=== PATIENT | female | born 1935 | race Caucasian/White ===

== ENCOUNTER 2016-05-14 07:26 | Day surgery (SDCO) | payer MEDICARE, OTHER ==
[2016-05-14 07:39] LABS: BASOPHIL 0.3 % (0-2); EOSINOPHIL 2.4 % (0-7); HCT 35.3 % (37.0-47.0); HGB 11.4 g/dl (12.5-16.0); LYMPHOCYTE 13.2 % (15-48); MCH 27.2 pg (25.0-31.0); MCHC 32.3 g/dL (32.0-36.0); MCV 84.2 fL (78.0-100.0); MONOCYTE 10.9 % (0-12); MPV 9.8 fL (6.0-9.5); NEUTROPHIL 73.2 % (41-80); PLT 185 K/uL (150-400); RBC 4.19 M/uL (4.20-5.40); WBC 5.8 K/uL (4.0-10.5)
[2016-05-14 07:45] LABS: INR 2.76 (0.9-1.2); PROTHROMBIN TIME 28.5 SECONDS (11.7-14.0); PTT 48.5 SECONDS (23.2-31.4)
[2016-05-14 07:53] LABS: ALBUMIN 4.4 g/dL (3.4-4.8); BILIRUBIN - TOTAL 0.5 mg/dL (0.1-1.0); CREATININE 0.9 mg/dL (0.5-1.0); GLOBULIN (CALCULATION) 2.3 g/dL (2.2-4.2); MAGNESIUM 1.84 mg/dL (1.40-2.10); POTASSIUM 3.9 mmol/L (3.5-5.1); TOTAL PROTEIN 6.7 g/dL (6.4-8.3)
[2016-05-14 07:56] LABS: CKMB 1.88 ng/mL (0.97-4.94); MYOGLOBIN 40 ng/mL (26-65); TROPONIN T < 0.010 ng/mL
[2016-05-14 07:58] LABS: PRO-BNP 1188 pg/mL (0-450)
[2016-05-15 04:22] LABS: BASOPHIL 0.4 % (0-2); EOSINOPHIL 2.1 % (0-7); HCT 34.3 % (37.0-47.0); HGB 11.1 g/dl (12.5-16.0); LYMPHOCYTE 13.7 % (15-48); MCH 27.1 pg (25.0-31.0); MCHC 32.4 g/dL (32.0-36.0); MCV 83.9 fL (78.0-100.0); MPV 9.7 fL (6.0-9.5); NEUTROPHIL 72.8 % (41-80); PLT 183 K/uL (150-400); RBC 4.09 M/uL (4.20-5.40); RDW 14.9 % (11.5-14.0); WBC 5.3 K/uL (4.0-10.5)
[2016-05-15 04:29] LABS: INR 2.57 (0.9-1.2); PROTHROMBIN TIME 26.9 SECONDS (11.7-14.0)
[2016-05-15 04:39] LABS: TROPONIN T < 0.010 ng/mL
[2016-05-15 04:41] LABS: PRO-BNP 1110 pg/mL (0-450)
[2016-05-15 04:42] LABS: POTASSIUM 3.9 mmol/L (3.5-5.1)
[2016-05-16 04:14] LABS: HCT 33.5 % (37.0-47.0); HGB 10.7 g/dl (12.5-16.0); MCH 26.7 pg (25.0-31.0); MCHC 31.9 g/dL (32.0-36.0); MCV 83.5 fL (78.0-100.0); MPV 9.5 fL (6.0-9.5); RBC 4.01 M/uL (4.20-5.40); WBC 5.1 K/uL (4.0-10.5)
[2016-05-16 04:22] LABS: INR 2.85 (0.9-1.2); PROTHROMBIN TIME 29.2 SECONDS (11.7-14.0)
[2016-05-16 04:42] LABS: MAGNESIUM 1.81 mg/dL (1.40-2.10); POTASSIUM 3.5 mmol/L (3.5-5.1)
[2016-05-17 04:15] LABS: HCT 34.6 % (37.0-47.0); MCH 26.8 pg (25.0-31.0); MCHC 31.8 g/dL (32.0-36.0); MCV 84.2 fL (78.0-100.0); RBC 4.11 M/uL (4.20-5.40); RETICULOCYTE COUNT 1.5 % (1.0-2.0); WBC 4.6 K/uL (4.0-10.5)
[2016-05-17 04:20] LABS: INR 1.94 (0.9-1.2); PROTHROMBIN TIME 21.6 SECONDS (11.7-14.0)
[2016-05-17 04:37] LABS: CREATININE 1.3 mg/dL (0.5-1.0); POTASSIUM 4.2 mmol/L (3.5-5.1)
[2016-05-17 04:38] LABS: IRON 40 ug/dL (44-196); IRON % SATURATION 13 %SAT (20-50); TIBC (TOTAL IRON + UIBC) 309 U/L (228-428); UIBC 269 ug/dL (112-346)
[2016-05-17 04:51] LABS: FOLIC ACID (SERUM) 7.2 ng/mL (5.6-45.8)
[2016-05-18 05:02] LABS: INR 1.52 (0.9-1.2); PROTHROMBIN TIME 17.8 SECONDS (11.7-14.0)
[2016-05-18 05:09] LABS: CREATININE 0.9 mg/dL (0.5-1.0); POTASSIUM 4.3 mmol/L (3.5-5.1)
[2016-05-19 04:11] LABS: HCT 33.1 % (37.0-47.0); HGB 10.5 g/dl (12.5-16.0); MCH 26.6 pg (25.0-31.0); MCHC 31.7 g/dL (32.0-36.0); MPV 9.9 fL (6.0-9.5); RBC 3.94 M/uL (4.20-5.40); WBC 4.1 K/uL (4.0-10.5)
[2016-05-19 04:19] LABS: INR 1.23 (0.9-1.2); PROTHROMBIN TIME 15.1 SECONDS (11.7-14.0)
[2016-05-19 04:26] LABS: CREATININE 0.9 mg/dL (0.5-1.0); POTASSIUM 3.8 mmol/L (3.5-5.1)
--- NOTE | 2016-06-03 09:04 | NUR ---
Pt was transferred to [facility] prior to social work assessment
== END 2016-05-19 09:15 | disposition other institution (70) ==
LOC: FER 07:26 → FTCU 11:50
PROVIDERS: Emergency Medicine; Internal Medicine Cardiovascular Disease; ADMIT Internal Medicine
DX: I24.9 Acute ischemic heart disease, unspecified (principal); I25.10 Atherosclerotic heart disease of native coronary artery without angina pectoris; I48.2 Chronic atrial fibrillation; I25.2 Old myocardial infarction; I10 Essential (primary) hypertension; E03.9 Hypothyroidism, unspecified; E78.5 Hyperlipidemia, unspecified; J44.9 Chronic obstructive pulmonary disease, unspecified; K21.9 Gastro-esophageal reflux disease without esophagitis; M19.90 Unspecified osteoarthritis, unspecified site; G57.91 Unspecified mononeuropathy of right lower limb; G47.33 Obstructive sleep apnea (adult) (pediatric); Z90.49 Acquired absence of other specified parts of digestive tract; Z90.11 Acquired absence of right breast and nipple; Z95.1 Presence of aortocoronary bypass graft; Z95.2 Presence of prosthetic heart valve; Z87.891 Personal history of nicotine dependence; Z86.73 Personal history of transient ischemic attack (TIA), and cerebral infarction without residual deficits; Z85.3 Personal history of malignant neoplasm of breast; Z82.49 Family history of ischemic heart disease and other diseases of the circulatory system; Z82.3 Family history of stroke; Z83.3 Family history of diabetes mellitus; Z79.02 Long term (current) use of antithrombotics/antiplatelets; Z79.01 Long term (current) use of anticoagulants; Z79.899 Other long term (current) drug therapy; Z98.890 Other specified postprocedural states
CPT/HCPCS: 36415; 71010; 80048; 80053; 80061; 82550; 82553; 82607; 82746; 83540; 83550; 83735; 83874; 83880; 84484; 85025; 85044; 85610; 85730; 93005; 94010; G0378; J2916; J3420

== ENCOUNTER 2016-07-12 09:29 | Emergency (ER) | payer MEDICARE, OTHER ==
[2016-07-12 09:50] LABS: BILIRUBIN NEGATIVE (NEGATIVE); BLOOD TRACE-INTACT Ery/uL (NEGATIVE); CLARITY CLEAR (CLEAR); COLOR YELLOW (YELLOW); GLUCOSE (U) NORMAL (NORMAL); KETONE (U) NEGATIVE (NEGATIVE); LEUKOCYTES NEGATIVE Leu/uL (NEGATIVE); NITRITE NEGATIVE (NEGATIVE); PROTEIN NEGATIVE (NEGATIVE); SPECIFIC GRAVITY <=1.005 (1.001-1.030); UROBILINOGEN 0.2 mg/dL (0.2-1.0)
[2016-07-12 10:09] LABS: BACTERIA TRACE; URINARY WBC RARE
== END 2016-07-12 10:35 | disposition home or self-care (01) ==
LOC: FER 09:29
PROVIDERS: Emergency Medicine
DX: R30.0 Dysuria (principal); I10 Essential (primary) hypertension; Z79.01 Long term (current) use of anticoagulants; Z79.02 Long term (current) use of antithrombotics/antiplatelets; Z90.49 Acquired absence of other specified parts of digestive tract; Z90.89 Acquired absence of other organs; Z98.890 Other specified postprocedural states
CPT/HCPCS: 81001; 99283

== ENCOUNTER 2020-02-16 09:08 | Inpatient (IN) | payer MEDICARE, OTHER ==
[~2020-02-16 09:08] MED LIST: AMITRIPTYLINE 550 MG PO; BACLOFEN 10MG T10 MG PO; BREO ELLIPTA 11 EACH INH; CARDIZEM30 MG PO; CELEXA10 MG PO; COUMADIN4 MG PO; COZAAR50 MG PO; DIOVAN80 MG PO; ELAVIL50 MG PO; K-DUR20 MEQ PO; KEFLEX250 MG PO; KLOR-CON M20 T20 MEQ PO; KLOR-CON20 MEQ PO; LASIX40 MG PO; LASIX80 MG PO; LEVO-T88 MCG PO; LOPRESSOR50 MG PO; LOVAZA1 GM PO; MAG-OXIDE 400M400 MG PO; METOCLOPRAMIDE H5 MG PO; NITROQUIK SL0.4 MG SL; NORVASC2.5 MG PO; OS-CAL500 MG PO; PLAVIX75 MG PO; PRAVACHOL20 MG PO; PRILOSEC20 MG PO; REGLAN5 M1 PO; REQUIP1 MG PO; SYNTHROID88 MCG PO; TOPROL XL 50 MG50 MG PO; VENTOLIN (2.5 MG/3 M INH; XANAX0.5 MG PO
[2020-02-16 10:00] LABS: BILIRUBIN NEGATIVE (NEGATIVE); BLOOD TRACE-LYSED Ery/uL (NEGATIVE); CLARITY CLEAR (CLEAR); COLOR YELLOW (YELLOW); GLUCOSE (U) NORMAL (NORMAL); LEUKOCYTES NEGATIVE Leu/uL (NEGATIVE); NITRITE NEGATIVE (NEGATIVE); PROTEIN NEGATIVE (NEGATIVE); SPECIFIC GRAVITY <=1.005 (1.001-1.030); UROBILINOGEN 0.2 mg/dL (0.2-1.0); pH 5.5 (5.0-9.0)
[2020-02-16 10:06] LABS: URINARY RBC RARE
[2020-02-16 10:07] LABS: SQUAMOUS EPITHELIAL CELLS RARE
[2020-02-16 10:36] LABS: BASOPHIL 0.4 % (0-2); EOSINOPHIL 0.6 % (0-7); HCT 33.5 % (37.0-47.0); HGB 10.9 g/dl (12.5-16.0); LYMPHOCYTE 7.2 % (15-48); MCH 29.6 pg (25.0-31.0); MCHC 32.5 g/dL (32.0-36.0); MONOCYTE 1.1 % (0-12); NEUTROPHIL 90.1 % (41-80); NRBC 0; PLT 203 K/uL (150-400); RBC 3.68 M/uL (4.20-5.40)
[2020-02-16 10:45] LABS: WBC 5.4 K/uL (4.0-10.5)
[2020-02-16 10:53] LABS: LACTIC ACID 1.3 mmol/L (0.4-1.9)
[2020-02-16 10:56] LABS: ALBUMIN 3.1 g/dL (3.4-5.0); ALKALINE PHOSHATASE 230 U/L (46-116); ALT 77 U/L (14-59); AST 78 U/L (15-37); BILIRUBIN - TOTAL 0.9 mg/dL (0.2-1.0); BUN 18 mg/dL (7-18); BUN/CREAT RATIO (CALC) 18.2 RATIO; C-REACTIVE PROTEIN >18.00 mg/dL (<=0.90); CHLORIDE 102 mmol/L (98-107); CO2 (BICARBONATE) 28 mmol/L (21-32); CREATININE 0.99 mg/dL (0.51-0.95); GLOBULIN (CALCULATION) 3.6 g/dL; GLUCOSE 108 mg/dL (74-106); LIPASE 131 U/L (73-393); POTASSIUM 2.7 mmol/L (3.5-5.1); TOTAL PROTEIN 6.7 g/dL (6.4-8.2)
[2020-02-16 11:15] LABS: CORONAVIRUS 2019 SARS-COV-2 NEGATIVE (NEGATIVE); INFLUENZA A NAA NEGATIVE (NEGATIVE)
[2020-02-16 11:20] LABS: INR 4.44 (0.9-1.2); PROTHROMBIN TIME 40.4 SECONDS (11.4-13.6)
[2020-02-16] MEDS ORDERED: KEFLEX500 MG PO (15:35)
[2020-02-16] MEDS ORDERED: ATARAX25 MG PO (15:56)
[2020-02-16] MEDS ORDERED: FOLIC ACID1 MG PO (15:57)
[2020-02-16] MEDS ORDERED: RHEUMATREX2.5 MG PO (16:04)
[2020-02-17 05:51] LABS: BASOPHIL 0.9 % (0-2); EOSINOPHIL 3.6 % (0-7); HCT 34.1 % (37.0-47.0); HGB 10.8 g/dl (12.5-16.0); LYMPHOCYTE 13.4 % (15-48); MCH 29.3 pg (25.0-31.0); MCHC 31.7 g/dL (32.0-36.0); MCV 92.4 fL (78.0-100.0); MONOCYTE 2.1 % (0-12); NEUTROPHIL 79.1 % (41-80); NRBC 0; PLT 207 K/uL (150-400); RBC 3.69 M/uL (4.20-5.40); RDW 17.1 % (11.5-14.0); WBC 3.3 K/uL (4.0-10.5)
[2020-02-17 06:16] LABS: ALBUMIN 2.7 g/dL (3.4-5.0); BILIRUBIN - TOTAL 0.9 mg/dL (0.2-1.0); BUN/CREAT RATIO (CALC) 15.6 RATIO; CREATININE 0.9 mg/dL (0.51-0.95); GLOBULIN (CALCULATION) 3.4 g/dL; POTASSIUM 3.5 mmol/L (3.5-5.1); TOTAL PROTEIN 6.1 g/dL (6.4-8.2)
[2020-02-17 06:19] LABS: INR 4.05 (0.9-1.2); PROTHROMBIN TIME 37.6 SECONDS (11.4-13.6)
[2020-02-18 04:54] LABS: BASOPHIL 1.6 % (0-2); EOSINOPHIL 3.2 % (0-7); HCT 31.6 % (37.0-47.0); HGB 9.8 g/dl (12.5-16.0); LYMPHOCYTE 30.6 % (15-48); MCH 29.3 pg (25.0-31.0); MCV 94.6 fL (78.0-100.0); MONOCYTE 6.5 % (0-12); MPV 10.1 fL (6.0-9.5); NRBC 0; PLT 180 K/uL (150-400); RBC 3.34 M/uL (4.20-5.40); RDW 17.1 % (11.5-14.0)
[2020-02-18 04:57] LABS: INR 2.36 (0.9-1.2); PROTHROMBIN TIME 24.6 SECONDS (11.4-13.6)
[2020-02-18 05:03] LABS: WBC 1.9 K/uL (4.0-10.5)
[2020-02-18 05:31] LABS: ALBUMIN 2.5 g/dL (3.4-5.0); BILIRUBIN - TOTAL 0.6 mg/dL (0.2-1.0); BUN/CREAT RATIO (CALC) 13.4 RATIO; CREATININE 1.12 mg/dL (0.51-0.95); GLOBULIN (CALCULATION) 3.3 g/dL; POTASSIUM 3.9 mmol/L (3.5-5.1); TOTAL PROTEIN 5.8 g/dL (6.4-8.2)
[2020-02-19 05:00] LABS: BASOPHIL 0.4 % (0-2); EOSINOPHIL 3.5 % (0-7); HCT 32.6 % (37.0-47.0); LYMPHOCYTE 26.5 % (15-48); MCH 29.2 pg (25.0-31.0); MCHC 30.7 g/dL (32.0-36.0); MONOCYTE 9.7 % (0-12); MPV 9.5 fL (6.0-9.5); NEUTROPHIL 59.5 % (41-80); NRBC 0; PLT 154 K/uL (150-400); RBC 3.43 M/uL (4.20-5.40); RDW 17.1 % (11.5-14.0); WBC 2.3 K/uL (4.0-10.5)
[2020-02-19 05:06] LABS: INR 1.41 (0.9-1.2); PROTHROMBIN TIME 16.4 SECONDS (11.4-13.6)
[2020-02-19 05:27] LABS: CREATININE 0.88 mg/dL (0.51-0.95); POTASSIUM 4.1 mmol/L (3.5-5.1)
[2020-02-20 04:46] LABS: BASOPHIL 0.6 % (0-2); EOSINOPHIL 3.8 % (0-7); HCT 30.8 % (37.0-47.0); HGB 9.6 g/dl (12.5-16.0); LYMPHOCYTE 24.5 % (15-48); MCH 29.4 pg (25.0-31.0); MCHC 31.2 g/dL (32.0-36.0); MCV 94.2 fL (78.0-100.0); MONOCYTE 7.3 % (0-12); MPV 9.1 fL (6.0-9.5); NEUTROPHIL 63.2 % (41-80); NRBC 0; PLT 129 K/uL (150-400); RBC 3.27 M/uL (4.20-5.40); RDW 16.8 % (11.5-14.0); WBC 3.1 K/uL (4.0-10.5)
[2020-02-20 04:54] LABS: INR 1.42 (0.9-1.2); PROTHROMBIN TIME 16.5 SECONDS (11.4-13.6)
[2020-02-20 05:04] LABS: ALBUMIN 2.5 g/dL (3.4-5.0); BILIRUBIN - TOTAL 0.5 mg/dL (0.2-1.0); CREATININE 0.88 mg/dL (0.51-0.95); GLOBULIN (CALCULATION) 3.2 g/dL; POTASSIUM 4.1 mmol/L (3.5-5.1); TOTAL PROTEIN 5.7 g/dL (6.4-8.2)
[2020-02-20 08:07] LABS: HBSAG SCREEN Negative (Negative); HEP B CORE AB, TOT Negative (Negative); HEP C VIRUS AB 0.1 (0.0-0.9)
[2020-02-20] MEDS ORDERED: AMOX TR-K CLV1 EAC4 PO (13:52)
[2020-02-20] MEDS ORDERED: LOVENOX60 MG/0.6 SC (13:53)
--- NOTE | 2020-02-20 14:37 | NUR ---
02/20/20 Ms. Mccormick is and lives alone. She has 02 for night use, rw, rollator, 3in1, and s. chair. Ms. Mccormick reports to have been modified independent with ADLS and IADLS prior to admission; she drives. - Ms. Mccormick requested [facility]; affliations have been explained. A referral was made to [facility] via [facility] for nursing ([facility]) and PT. [facility] verified cost of Lovenox injections to be $5.26. - Report given to MS Renetta RN.
--- NOTE | 2020-02-20 15:14 | NUR ---
DISCHARGE INSTRUCTIONS GIVEN. VERBALIZED UNDERSTANDING. IV DCD. FAMILY TO OBSTETRICS SPECIALIST AT [facility].
== END 2020-02-20 15:00 | disposition home health service (06) | DRG 871 ==
LOC: FER 09:08 → FMS 12:57
PROVIDERS: Allergy & Immunology Allergy; Internal Medicine; Nurse Practitioner; ADMIT Internal Medicine
DX: A41.9 Sepsis, unspecified organism (principal); J18.9 Pneumonia, unspecified organism; I48.20 Chronic atrial fibrillation, unspecified; J44.0 Chronic obstructive pulmonary disease with (acute) lower respiratory infection; I50.22 Chronic systolic (congestive) heart failure; E78.5 Hyperlipidemia, unspecified; Z20.822 Contact with and (suspected) exposure to COVID-19; F41.9 Anxiety disorder, unspecified; I25.10 Atherosclerotic heart disease of native coronary artery without angina pectoris; I11.0 Hypertensive heart disease with heart failure; K21.9 Gastro-esophageal reflux disease without esophagitis; E03.9 Hypothyroidism, unspecified; G47.33 Obstructive sleep apnea (adult) (pediatric); G89.29 Other chronic pain; M81.0 Age-related osteoporosis without current pathological fracture; M54.5 Low back pain; F17.210 Nicotine dependence, cigarettes, uncomplicated; R79.89 Other specified abnormal findings of blood chemistry; E87.6 Hypokalemia; Z79.01 Long term (current) use of anticoagulants; Z79.899 Other long term (current) drug therapy; Z95.2 Presence of prosthetic heart valve; Z95.0 Presence of cardiac pacemaker; Z90.49 Acquired absence of other specified parts of digestive tract; Z98.890 Other specified postprocedural states; Z88.2 Allergy status to sulfonamides; Z95.1 Presence of aortocoronary bypass graft; Z95.5 Presence of coronary angioplasty implant and graft; Z85.3 Personal history of malignant neoplasm of breast; Z86.73 Personal history of transient ischemic attack (TIA), and cerebral infarction without residual deficits
CPT/HCPCS: 36415; 71045; 71046; 80048; 80053; 81001; 83605; 83690; 83735; 84145; 85025; 85379; 85610; 85730; 86140; 86704; 86706; 86708; 86803; 87040; 87340; 93005; J0696; J1650; J2405; J2543; U0002

== ENCOUNTER 2020-03-13 09:12 | Inpatient (IN) | payer MEDICARE, OTHER ==
[~2020-03-13 09:12] MED LIST changes: +AMOX TR-K CLV1 EAC4 PO; +ATARAX25 MG PO; +FOLIC ACID1 MG PO; +KEFLEX500 MG PO; +LOVENOX60 MG/0.6 SC; +RHEUMATREX2.5 MG PO
[2020-03-13 11:00] LABS: BASOPHIL 0.3 % (0-2); EOSINOPHIL 0 % (0-7); HCT 36.4 % (37.0-47.0); HGB 11.7 g/dl (12.5-16.0); LYMPHOCYTE 2.1 % (15-48); MCH 29.2 pg (25.0-31.0); MCHC 32.1 g/dL (32.0-36.0); MCV 90.8 fL (78.0-100.0); MONOCYTE 3.7 % (0-12); MPV 10.3 fL (6.0-9.5); NEUTROPHIL 92.3 % (41-80); NRBC 0; PLT 151 K/uL (150-400); RBC 4.01 M/uL (4.20-5.40); RDW 17.6 % (11.5-14.0)
[2020-03-13 11:15] LABS: WBC 30.7 K/uL (4.0-10.5)
[2020-03-13 11:31] LABS: ALBUMIN 2.7 g/dL (3.4-5.0); BILIRUBIN - TOTAL 0.8 mg/dL (0.2-1.0); BUN/CREAT RATIO (CALC) 12.1 RATIO; CREATININE 1.16 mg/dL (0.51-0.95); GLOBULIN (CALCULATION) 3.4 g/dL; TOTAL PROTEIN 6.1 g/dL (6.4-8.2)
[2020-03-13 11:35] LABS: POTASSIUM 2.4 mmol/L (3.5-5.1)
[2020-03-13 11:59] LABS: LACTIC ACID 1.4 mmol/L (0.4-1.9)
[2020-03-13 13:00] LABS: CLARITY CLEAR (CLEAR); COLOR ORANGE (YELLOW)
[2020-03-13 13:10] LABS: BACTERIA TRACE; URINARY RBC RARE; URINARY WBC 20-50
[2020-03-13 13:12] LABS: AMORPHOUS URATES CRYSTALS TRACE
[2020-03-13 15:05] LABS: INR 4.6 (0.9-1.2); PROTHROMBIN TIME 41.6 SECONDS (11.4-13.6)
[2020-03-13] MEDS ORDERED: LASIX80 MG PO (16:22)
[2020-03-13] MEDS ORDERED: TOPROL XL 50 MG50 MG PO (16:29)
[2020-03-13] MEDS ORDERED: RHEUMATREX2.5 MG PO (16:36)
[2020-03-13] MEDS ORDERED: LOVAZA1 GM PO (16:37)
[2020-03-13] MEDS ORDERED: WARFARIN SODIUM6 MG PO (16:46)
[2020-03-13] MEDS ORDERED: WARFARIN SODIUM4 MG PO (16:47)
[2020-03-13 18:06] LABS: BILIRUBIN 1+ mg/dL (NEGATIVE); BLOOD TRACE-INTACT Ery/uL (NEGATIVE); CLARITY CLEAR (CLEAR); COLOR ORANGE (YELLOW); GLUCOSE (U) TRACE mg/dL (NORMAL); LEUKOCYTES TRACE Leu/uL (NEGATIVE); NITRITE POSITIVE (NEGATIVE); PROTEIN 2+ mg/dL (NEGATIVE)
[2020-03-14 06:27] LABS: BASOPHIL 0.2 % (0-2); EOSINOPHIL 0.6 % (0-7); HCT 32.6 % (37.0-47.0); HGB 10.4 g/dl (12.5-16.0); LYMPHOCYTE 1.9 % (15-48); MCH 29.1 pg (25.0-31.0); MCHC 31.9 g/dL (32.0-36.0); MCV 91.3 fL (78.0-100.0); MONOCYTE 5.6 % (0-12); MPV 10.5 fL (6.0-9.5); NEUTROPHIL 90.8 % (41-80); NRBC 0; PLT 163 K/uL (150-400); RBC 3.57 M/uL (4.20-5.40); RDW 17.7 % (11.5-14.0)
[2020-03-14 06:29] LABS: WBC 21.6 K/uL (4.0-10.5)
[2020-03-14 06:41] LABS: PROTHROMBIN TIME 46.7 SECONDS (11.4-13.6)
[2020-03-14 06:48] LABS: BUN 12 mg/dL (7-18); BUN/CREAT RATIO (CALC) 12.8 RATIO; CHLORIDE 105 mmol/L (98-107); CO2 (BICARBONATE) 19 mmol/L (21-32); CREATININE 0.94 mg/dL (0.51-0.95); GLUCOSE 112 mg/dL (74-106)
[2020-03-14 06:50] LABS: C-REACTIVE PROTEIN > 18.00 mg/dL (<=0.90); POTASSIUM 4.3 mmol/L (3.5-5.1)
[2020-03-14 06:55] LABS: INR 5.33 (0.9-1.2)
--- NOTE | 2020-03-14 15:26 | NUR ---
LIVES ALONE REPORTS SHE IS INDEPENDENT WITH ADL'S HAS A WALKER. PLEASE ADVISE OF DC NEEDS
[2020-03-15 07:01] LABS: BASOPHIL 0.4 % (0-2); EOSINOPHIL 1.9 % (0-7); HCT 33.6 % (37.0-47.0); HGB 10.5 g/dl (12.5-16.0); LYMPHOCYTE 5.6 % (15-48); MCH 28.9 pg (25.0-31.0); MCHC 31.3 g/dL (32.0-36.0); MCV 92.6 fL (78.0-100.0); MONOCYTE 4.6 % (0-12); NEUTROPHIL 86.4 % (41-80); NRBC 0; PLT 192 K/uL (150-400); RBC 3.63 M/uL (4.20-5.40); RDW 17.7 % (11.5-14.0); WBC 16.1 K/uL (4.0-10.5)
[2020-03-15 07:12] LABS: PROTHROMBIN TIME 45.1 SECONDS (11.4-13.6)
[2020-03-15 07:17] LABS: INR 5.1 (0.9-1.2)
[2020-03-15 07:22] LABS: BUN/CREAT RATIO (CALC) 14.9 RATIO; CREATININE 0.94 mg/dL (0.51-0.95); POTASSIUM 3.1 mmol/L (3.5-5.1)
--- NOTE | 2020-03-15 12:09 | NUR ---
03/15/20 Ms. Mccormick lives alone. [facility] is [facility] . [facility] been notified of admission and anticipated discharge for 03/16. Ms. Mccormick has 02 for night use, rollator, rw, 3in1, emergency alert system, and s. chair.
[2020-03-16 06:33] LABS: BASOPHIL 0.6 % (0-2); EOSINOPHIL 3.8 % (0-7); HCT 30.7 % (37.0-47.0); HGB 9.6 g/dl (12.5-16.0); LYMPHOCYTE 8.2 % (15-48); MCH 28.8 pg (25.0-31.0); MCHC 31.3 g/dL (32.0-36.0); MCV 92.2 fL (78.0-100.0); MONOCYTE 8.6 % (0-12); MPV 10.6 fL (6.0-9.5); NEUTROPHIL 77.9 % (41-80); NRBC 0; PLT 203 K/uL (150-400); RBC 3.33 M/uL (4.20-5.40); RDW 17.8 % (11.5-14.0); WBC 6.4 K/uL (4.0-10.5)
[2020-03-16 06:42] LABS: INR 3.3 (0.9-1.2)
[2020-03-16 06:53] LABS: BUN/CREAT RATIO (CALC) 15.8 RATIO; CREATININE 0.95 mg/dL (0.51-0.95)
[2020-03-16] MEDS ORDERED: VANCOMYCIN HCL1 GM PO (10:39)
[2020-03-16] MEDS ORDERED: MACROBID100 MG PO (10:39)
[2020-03-16] MEDS ORDERED: PREPARATION H1 EAC1 PR (14:16)
== END 2020-03-16 12:57 | disposition home health service (06) | DRG 872 ==
LOC: FER 09:12 → FMS 13:23
PROVIDERS: Emergency Medicine; ADMIT Allergy & Immunology Allergy
DX: A41.9 Sepsis, unspecified organism (principal); N39.0 Urinary tract infection, site not specified; N17.9 Acute kidney failure, unspecified; I48.20 Chronic atrial fibrillation, unspecified; I50.20 Unspecified systolic (congestive) heart failure; A04.72 Enterocolitis due to Clostridium difficile, not specified as recurrent; E87.6 Hypokalemia; Z20.822 Contact with and (suspected) exposure to COVID-19; N18.30 Chronic kidney disease, stage 3 unspecified; K59.09 Other constipation; K64.9 Unspecified hemorrhoids; I25.10 Atherosclerotic heart disease of native coronary artery without angina pectoris; E78.5 Hyperlipidemia, unspecified; J44.9 Chronic obstructive pulmonary disease, unspecified; G47.33 Obstructive sleep apnea (adult) (pediatric); E03.9 Hypothyroidism, unspecified; M81.0 Age-related osteoporosis without current pathological fracture; I36.1 Nonrheumatic tricuspid (valve) insufficiency; I27.20 Pulmonary hypertension, unspecified; M06.9 Rheumatoid arthritis, unspecified; R33.9 Retention of urine, unspecified; Z95.1 Presence of aortocoronary bypass graft; Z95.5 Presence of coronary angioplasty implant and graft; Z85.3 Personal history of malignant neoplasm of breast; Z86.73 Personal history of transient ischemic attack (TIA), and cerebral infarction without residual deficits; Z79.899 Other long term (current) drug therapy; Z79.1 Long term (current) use of non-steroidal anti-inflammatories (NSAID); Z87.891 Personal history of nicotine dependence; Z79.01 Long term (current) use of anticoagulants; Z88.2 Allergy status to sulfonamides
CPT/HCPCS: 36415; 80048; 80053; 81001; 81003; 83605; 85025; 85610; 86140; 87040; 87088; 87205; 87324; 87449; 87493; 93005; 97110; 97162; 97530-GP; J2543; J3370; J7030; J7120; U0002

== ENCOUNTER 2020-03-30 11:07 | Emergency (ER) | payer MEDICARE, OTHER ==
[~2020-03-30 11:07] MED LIST changes: +MACROBID100 MG PO; +PREPARATION H1 EAC1 PR; +VANCOMYCIN HCL1 GM PO; +WARFARIN SODIUM4 MG PO; +WARFARIN SODIUM6 MG PO
== END 2020-03-30 15:06 | disposition home or self-care (01) ==
LOC: FER 11:07
DX: S61.411A Laceration without foreign body of right hand, initial encounter (principal); S63.501A Unspecified sprain of right wrist, initial encounter; I10 Essential (primary) hypertension; I48.91 Unspecified atrial fibrillation; E11.9 Type 2 diabetes mellitus without complications; Z79.02 Long term (current) use of antithrombotics/antiplatelets; Z79.899 Other long term (current) drug therapy; X50.1XXA Overexertion from prolonged static or awkward postures, initial encounter; Y92.009 Unspecified place in unspecified non-institutional (private) residence as the place of occurrence of the external cause
CPT/HCPCS: 70450; 73110

== ENCOUNTER 2020-04-02 09:58 | Inpatient (IN) | payer MEDICARE, OTHER ==
[2020-04-02 12:09] LABS: BASOPHIL 0.2 % (0-2); EOSINOPHIL 1.4 % (0-7); HCT 36.1 % (37.0-47.0); HGB 11.7 g/dl (12.5-16.0); LYMPHOCYTE 2.2 % (15-48); MCH 29.7 pg (25.0-31.0); MCHC 32.4 g/dL (32.0-36.0); MCV 91.6 fL (78.0-100.0); MONOCYTE 6.8 % (0-12); MPV 9.6 fL (6.0-9.5); NEUTROPHIL 88.7 % (41-80); NRBC 0; PLT 148 K/uL (150-400); RBC 3.94 M/uL (4.20-5.40); WBC 19.2 K/uL (4.0-10.5)
[2020-04-02 12:17] LABS: ALBUMIN 2.8 g/dL (3.4-5.0); BUN/CREAT RATIO (CALC) 16.5 RATIO; CREATININE 0.97 mg/dL (0.51-0.95); GLOBULIN (CALCULATION) 3.3 g/dL; POTASSIUM 2.7 mmol/L (3.5-5.1); TOTAL PROTEIN 6.1 g/dL (6.4-8.2)
[2020-04-02 12:22] LABS: LACTIC ACID 1.3 mmol/L (0.4-1.9)
[2020-04-02 12:36] LABS: CORONAVIRUS 2019 SARS-COV-2 NEGATIVE (NEGATIVE)
[2020-04-02 12:37] LABS: INFLUENZA A NAA NEGATIVE (NEGATIVE)
[2020-04-02 13:30] LABS: BILIRUBIN 1+ mg/dL (NEGATIVE); BLOOD TRACE-INTACT Ery/uL (NEGATIVE); CLARITY CLEAR (CLEAR); COLOR YELLOW (YELLOW); GLUCOSE (U) NORMAL (NORMAL); LEUKOCYTES NEGATIVE Leu/uL (NEGATIVE); NITRITE NEGATIVE (NEGATIVE); PROTEIN NEGATIVE (NEGATIVE); SPECIFIC GRAVITY >=1.030 (1.001-1.030); UROBILINOGEN 0.2 mg/dL (0.2-1.0)
[2020-04-02 13:41] LABS: AMORPHOUS URATES CRYSTALS TRACE; BACTERIA TRACE
[2020-04-02] MEDS ORDERED: LASIX40 MG PO (19:11)
[2020-04-02] MEDS ORDERED: LASIX80 MG PO (19:11)
[2020-04-02] MEDS ORDERED: NITROQUIK SL0.4 MG SL (19:12)
[2020-04-02] MEDS ORDERED: COZAAR50 MG PO (19:12)
[2020-04-02] MEDS ORDERED: WARFARIN SODIUM6 MG PO (19:14)
[2020-04-02] MEDS ORDERED: WARFARIN SODIU7.5 MG PO (19:15)
[2020-04-02] MEDS ORDERED: QUNOL PO (19:17)
[2020-04-02 20:54] LABS: INR 1.99 (0.9-1.2); PROTHROMBIN TIME 21.5 SECONDS (11.4-13.6)
[2020-04-03 05:10] LABS: HCT 32.6 % (37.0-47.0); HGB 10.4 g/dl (12.5-16.0); MCH 29.7 pg (25.0-31.0); MCHC 31.9 g/dL (32.0-36.0); MCV 93.1 fL (78.0-100.0); MPV 10.6 fL (6.0-9.5); RBC 3.5 M/uL (4.20-5.40); RDW 20.1 % (11.5-14.0); WBC 16.8 K/uL (4.0-10.5)
[2020-04-03 05:18] LABS: INR 2.11 (0.9-1.2); PROTHROMBIN TIME 22.5 SECONDS (11.4-13.6)
[2020-04-03 05:50] LABS: BUN/CREAT RATIO (CALC) 16.2 RATIO; CREATININE 0.8 mg/dL (0.51-0.95)
[2020-04-04 05:57] LABS: HCT 33.9 % (37.0-47.0); HGB 10.8 g/dl (12.5-16.0); MCH 29.6 pg (25.0-31.0); MCHC 31.9 g/dL (32.0-36.0); MCV 92.9 fL (78.0-100.0); MPV 11.4 fL (6.0-9.5); RBC 3.65 M/uL (4.20-5.40); RDW 19.1 % (11.5-14.0); WBC 10.7 K/uL (4.0-10.5)
[2020-04-04 06:09] LABS: INR 2.03 (0.9-1.2); PROTHROMBIN TIME 21.8 SECONDS (11.4-13.6)
[2020-04-04 06:34] LABS: BUN/CREAT RATIO (CALC) 10.8 RATIO; CREATININE 0.83 mg/dL (0.51-0.95); POTASSIUM 2.8 mmol/L (3.5-5.1)
[2020-04-04 12:23] LABS: BILIRUBIN NEGATIVE (NEGATIVE); BLOOD TRACE-INTACT Ery/uL (NEGATIVE); CLARITY CLEAR (CLEAR); COLOR YELLOW (YELLOW); GLUCOSE (U) NORMAL (NORMAL); LEUKOCYTES NEGATIVE Leu/uL (NEGATIVE); NITRITE NEGATIVE (NEGATIVE); PROTEIN NEGATIVE (NEGATIVE); SPECIFIC GRAVITY 1.025 (1.001-1.030); UROBILINOGEN 0.2 mg/dL (0.2-1.0); pH 5.5 (5.0-9.0)
[2020-04-05 05:53] LABS: HCT 30.8 % (37.0-47.0); HGB 9.7 g/dl (12.5-16.0); MCH 29.1 pg (25.0-31.0); MCHC 31.5 g/dL (32.0-36.0); MCV 92.5 fL (78.0-100.0); MPV 10.4 fL (6.0-9.5); RBC 3.33 M/uL (4.20-5.40); WBC 4.8 K/uL (4.0-10.5)
[2020-04-05 06:03] LABS: INR 2.15 (0.9-1.2); PROTHROMBIN TIME 22.8 SECONDS (11.4-13.6)
[2020-04-05 06:10] LABS: BUN/CREAT RATIO (CALC) 10.6 RATIO; CREATININE 0.85 mg/dL (0.51-0.95)
[2020-04-05 17:04] LABS: INR 2.33 (0.9-1.2); PROTHROMBIN TIME 24.3 SECONDS (11.4-13.6)
[2020-04-06 06:07] LABS: HCT 32.4 % (37.0-47.0); HGB 10.1 g/dl (12.5-16.0); MCH 28.8 pg (25.0-31.0); MCHC 31.2 g/dL (32.0-36.0); MCV 92.3 fL (78.0-100.0); MPV 11.1 fL (6.0-9.5); RBC 3.51 M/uL (4.20-5.40); RDW 18.9 % (11.5-14.0); WBC 3.6 K/uL (4.0-10.5)
[2020-04-06 06:35] LABS: BUN/CREAT RATIO (CALC) 13.2 RATIO; CREATININE 0.91 mg/dL (0.51-0.95); POTASSIUM 3.3 mmol/L (3.5-5.1)
[2020-04-06 09:53] LABS: INR 2.47 (0.9-1.2); PROTHROMBIN TIME 25.5 SECONDS (11.4-13.6)
[2020-04-06] MEDS ORDERED: VANCOCIN HCL125 MG PO (16:04)
== END 2020-04-06 17:02 | disposition home health service (06) | DRG 871 ==
LOC: FER 09:58 → FMS 15:09
PROVIDERS: Emergency Medicine; Nurse Practitioner; ADMIT Hospitalist
DX: A41.9 Sepsis, unspecified organism (principal); J96.01 Acute respiratory failure with hypoxia; A04.71 Enterocolitis due to Clostridium difficile, recurrent; N30.00 Acute cystitis without hematuria; I50.22 Chronic systolic (congestive) heart failure; E87.6 Hypokalemia; I25.10 Atherosclerotic heart disease of native coronary artery without angina pectoris; I11.0 Hypertensive heart disease with heart failure; D64.9 Anemia, unspecified; Z20.822 Contact with and (suspected) exposure to COVID-19; K21.9 Gastro-esophageal reflux disease without esophagitis; E03.9 Hypothyroidism, unspecified; I48.91 Unspecified atrial fibrillation; Z79.01 Long term (current) use of anticoagulants; Z95.5 Presence of coronary angioplasty implant and graft; Z95.0 Presence of cardiac pacemaker; Z90.49 Acquired absence of other specified parts of digestive tract; Z86.73 Personal history of transient ischemic attack (TIA), and cerebral infarction without residual deficits; Z95.1 Presence of aortocoronary bypass graft; Z95.2 Presence of prosthetic heart valve; Z98.890 Other specified postprocedural states; Z88.2 Allergy status to sulfonamides; Z79.899 Other long term (current) drug therapy
CPT/HCPCS: 36415; 36600; 70450; 71045; 73110; 80048; 80053; 81001; 82803; 83605; 85025; 85610; 87040; 87076; 87088; 87186; 93005; 97110; 97116; 97162; 97166; 97530; 97530-GP; J3480; J7030; Q0162; Q9967; U0002

== ENCOUNTER 2020-05-04 09:11 | Inpatient (IN) | payer MEDICARE, OTHER ==
[~2020-05-04 09:11] MED LIST changes: +QUNOL PO; +VANCOCIN HCL125 MG PO; +WARFARIN SODIU7.5 MG PO
[2020-05-04 10:25] LABS: BILIRUBIN NEGATIVE (NEGATIVE); BLOOD NEGATIVE Ery/uL (NEGATIVE); CLARITY CLEAR (CLEAR); COLOR YELLOW (YELLOW); GLUCOSE (U) NORMAL (NORMAL); LEUKOCYTES NEGATIVE Leu/uL (NEGATIVE); NITRITE NEGATIVE (NEGATIVE); PROTEIN NEGATIVE (NEGATIVE); UROBILINOGEN 0.2 mg/dL (0.2-1.0)
[2020-05-04 10:40] LABS: BASOPHIL 0.4 % (0-2); EOSINOPHIL 0.1 % (0-7); HCT 36.7 % (37.0-47.0); HGB 11.9 g/dl (12.5-16.0); LYMPHOCYTE 3.2 % (15-48); MCH 29.7 pg (25.0-31.0); MCHC 32.4 g/dL (32.0-36.0); MCV 91.5 fL (78.0-100.0); MONOCYTE 2.3 % (0-12); MPV 10.2 fL (6.0-9.5); NRBC 0; PLT 187 K/uL (150-400); RBC 4.01 M/uL (4.20-5.40); RDW 18.9 % (11.5-14.0); WBC 16.4 K/uL (4.0-10.5)
[2020-05-04 11:00] LABS: BUN/CREAT RATIO (CALC) 10.8 RATIO; CREATININE 0.93 mg/dL (0.51-0.95); POTASSIUM 2.8 mmol/L (3.5-5.1)
[2020-05-04 12:57] LABS: LACTIC ACID 1.9 mmol/L (0.4-1.9)
[2020-05-04 20:07] LABS: CORONAVIRUS 2019 SARS-COV-2 NEGATIVE (NEGATIVE); INFLUENZA A NAA NEGATIVE (NEGATIVE)
[2020-05-04] MEDS ORDERED: WARFARIN SODIUM4 MG PO ×2 (21:54→21:55)
[2020-05-04] MEDS ORDERED: REGLAN5 MG PO (21:56)
[2020-05-04] MEDS ORDERED: K-DUR20 MEQ PO (21:56)
[2020-05-05 08:22] LABS: INR 2.7 (0.9-1.2); PROTHROMBIN TIME 27.3 SECONDS (11.4-13.6); PTT 55.6 SECONDS (22.2-34.7)
[2020-05-05 11:49] LABS: HCT 34.3 % (37.0-47.0); HGB 10.9 g/dl (12.5-16.0); MCH 29.5 pg (25.0-31.0); MCHC 31.8 g/dL (32.0-36.0); MCV 92.7 fL (78.0-100.0); MPV 11.4 fL (6.0-9.5); RBC 3.7 M/uL (4.20-5.40); RDW 18.9 % (11.5-14.0); WBC 6.8 K/uL (4.0-10.5)
[2020-05-05 12:06] LABS: CREATININE 0.83 mg/dL (0.51-0.95)
[2020-05-06 05:57] LABS: HCT 31.3 % (37.0-47.0); HGB 10.1 g/dl (12.5-16.0); MCH 29.5 pg (25.0-31.0); MCHC 32.3 g/dL (32.0-36.0); MCV 91.5 fL (78.0-100.0); MPV 10.9 fL (6.0-9.5); RBC 3.42 M/uL (4.20-5.40); RDW 18.6 % (11.5-14.0); WBC 3.7 K/uL (4.0-10.5)
[2020-05-06 06:07] LABS: INR 2.68 (0.9-1.2); PROTHROMBIN TIME 27.2 SECONDS (11.4-13.6)
[2020-05-06 06:16] LABS: BUN/CREAT RATIO (CALC) 11.5 RATIO; CREATININE 0.87 mg/dL (0.51-0.95); POTASSIUM 4.1 mmol/L (3.5-5.1)
[2020-05-06] MEDS ORDERED: DIFICID200 MG PO (11:26)
[2020-05-06] MEDS ORDERED: VANCOMYCIN HCL1 GM PO (11:26)
== END 2020-05-06 12:45 | disposition home or self-care (01) | DRG 372 ==
LOC: FER 09:11 → FMS 17:33
PROVIDERS: Emergency Medicine; Nurse Practitioner; ADMIT Hospitalist
DX: A04.71 Enterocolitis due to Clostridium difficile, recurrent (principal); I48.20 Chronic atrial fibrillation, unspecified; I50.22 Chronic systolic (congestive) heart failure; E78.5 Hyperlipidemia, unspecified; E87.6 Hypokalemia; J44.9 Chronic obstructive pulmonary disease, unspecified; G47.33 Obstructive sleep apnea (adult) (pediatric); K21.9 Gastro-esophageal reflux disease without esophagitis; E03.9 Hypothyroidism, unspecified; Z20.822 Contact with and (suspected) exposure to COVID-19; M81.0 Age-related osteoporosis without current pathological fracture; I11.0 Hypertensive heart disease with heart failure; I27.20 Pulmonary hypertension, unspecified; I25.10 Atherosclerotic heart disease of native coronary artery without angina pectoris; Z87.440 Personal history of urinary (tract) infections; Z95.1 Presence of aortocoronary bypass graft; Z95.2 Presence of prosthetic heart valve; Z79.01 Long term (current) use of anticoagulants; Z79.02 Long term (current) use of antithrombotics/antiplatelets; Z79.899 Other long term (current) drug therapy; Z86.73 Personal history of transient ischemic attack (TIA), and cerebral infarction without residual deficits; Z90.49 Acquired absence of other specified parts of digestive tract; Z98.890 Other specified postprocedural states; Z95.5 Presence of coronary angioplasty implant and graft; Z88.2 Allergy status to sulfonamides
CPT/HCPCS: 36415; 80048; 81003; 83605; 85025; 85610; 85730; 87040; 87045; 87046; 87324; 87449; J2765; J3370; J3480; J7120; J8610; U0002

== ENCOUNTER 2020-05-27 12:02 | Emergency (ER) | payer MEDICARE, OTHER ==
[~2020-05-27 12:02] MED LIST changes: +DIFICID200 MG PO; +REGLAN5 MG PO
[2020-05-27 12:23] LABS: BASOPHIL 0.3 % (0-2); EOSINOPHIL 0.1 % (0-7); HCT 35.9 % (37.0-47.0); HGB 11.8 g/dl (12.5-16.0); LYMPHOCYTE 2.8 % (15-48); MCH 29.9 pg (25.0-31.0); MCHC 32.9 g/dL (32.0-36.0); MCV 91.1 fL (78.0-100.0); MONOCYTE 7.7 % (0-12); MPV 10.2 fL (6.0-9.5); NEUTROPHIL 88.6 % (41-80); NRBC 0; PLT 131 K/uL (150-400); RBC 3.94 M/uL (4.20-5.40); WBC 14.7 K/uL (4.0-10.5)
[2020-05-27 12:44] LABS: ALBUMIN 2.8 g/dL (3.4-5.0); BILIRUBIN - TOTAL 1.6 mg/dL (0.2-1.0); BUN/CREAT RATIO (CALC) 22.4 RATIO; CREATININE 0.98 mg/dL (0.51-0.95); GLOBULIN (CALCULATION) 2.9 g/dL; TOTAL PROTEIN 5.7 g/dL (6.4-8.2)
[2020-05-27 12:48] LABS: LACTIC ACID 3.9 mmol/L (0.4-1.9)
[2020-05-27 13:50] LABS: CORONAVIRUS 2019 SARS-COV-2 NEGATIVE (NEGATIVE); INFLUENZA A NAA NEGATIVE (NEGATIVE)
== END 2020-05-27 15:45 | disposition other institution (70) ==
LOC: FER 12:02
PROVIDERS: Emergency Medicine
DX: A41.9 Sepsis, unspecified organism (principal); R19.7 Diarrhea, unspecified; E86.0 Dehydration; I95.9 Hypotension, unspecified; E87.6 Hypokalemia; R74.02 Elevation of levels of lactic acid dehydrogenase [LDH]; E11.9 Type 2 diabetes mellitus without complications; I50.9 Heart failure, unspecified; J44.9 Chronic obstructive pulmonary disease, unspecified; K21.9 Gastro-esophageal reflux disease without esophagitis; Z79.84 Long term (current) use of oral hypoglycemic drugs; Z99.81 Dependence on supplemental oxygen; Z86.73 Personal history of transient ischemic attack (TIA), and cerebral infarction without residual deficits; Z88.2 Allergy status to sulfonamides; Z79.899 Other long term (current) drug therapy; Z79.01 Long term (current) use of anticoagulants; Z20.822 Contact with and (suspected) exposure to COVID-19
CPT/HCPCS: 36415; 36600; 71045; 80053; 82803; 83605; 85025; 87040; J3480; J7030; U0002

== ENCOUNTER 2020-10-24 17:59 | Emergency (ER) | payer MEDICARE, OTHER ==
[2020-10-24 22:57] LABS: BASOPHIL 0.2 % (0-2); HCT 35.1 % (37.0-47.0); HGB 10.6 g/dl (12.5-16.0); LYMPHOCYTE 16.7 % (15-48); MCH 25.9 pg (25.0-31.0); MCHC 30.2 g/dL (32.0-36.0); MCV 85.8 fL (78.0-100.0); MONOCYTE 11.9 % (0-12); MPV 10.2 fL (6.0-9.5); NEUTROPHIL 68.8 % (41-80); NRBC 0; PLT 156 K/uL (150-400); RBC 4.09 M/uL (4.20-5.40); RDW 17.8 % (11.5-14.0); WBC 4.6 K/uL (4.0-10.5)
[2020-10-24 23:12] LABS: INR 4.21 (0.9-1.2); PROTHROMBIN TIME 39.4 SECONDS (11.8-13.4)
[2020-10-24 23:13] LABS: PTT 63.5 SECONDS (24.4-34.7)
[2020-10-24 23:24] LABS: ALBUMIN 3.3 g/dL (3.4-5.0); BILIRUBIN - TOTAL 0.4 mg/dL (0.2-1.0); BUN/CREAT RATIO (CALC) 16.1 RATIO; CREATININE 1.12 mg/dL (0.51-0.95); GLOBULIN (CALCULATION) 3.2 g/dL; POTASSIUM 3.8 mmol/L (3.5-5.1); TOTAL PROTEIN 6.5 g/dL (6.4-8.2)
[2020-10-24 23:32] LABS: PRO-BNP 770 pg/mL (<450)
[2020-10-24 23:38] LABS: C-REACTIVE PROTEIN 3.1 mg/dL (<=0.90)
== END 2020-10-25 07:16 | disposition home or self-care (01) ==
LOC: FER 17:59
PROVIDERS: Emergency Medicine
DX: R06.00 Dyspnea, unspecified (principal); I11.0 Hypertensive heart disease with heart failure; I50.9 Heart failure, unspecified; I25.10 Atherosclerotic heart disease of native coronary artery without angina pectoris; J44.9 Chronic obstructive pulmonary disease, unspecified; Z20.822 Contact with and (suspected) exposure to COVID-19
CPT/HCPCS: 36415; 71045; 71275; 80053; 82728; 83880; 84484; 85025; 85379; 85610; 85730; 86140; 93005; 93970; Q9967; U0002

== ENCOUNTER 2021-10-09 09:11 | Emergency (ER) | payer MEDICARE, OTHER ==
[~2021-10-09 09:11] MED LIST changes: +SENNA-DOCUSATE1 EACH PO
[2021-10-09 11:25] LABS: BASOPHIL 0.7 % (0-2); EOSINOPHIL 2.1 % (0-7); HCT 42.2 % (37.0-47.0); HGB 13.3 g/dl (12.5-16.0); LYMPHOCYTE 10.7 % (15-48); MCH 27.3 pg (25.0-31.0); MCHC 31.5 g/dL (32.0-36.0); MCV 86.5 fL (78.0-100.0); MONOCYTE 7.8 % (0-12); MPV 9.7 fL (6.0-9.5); NEUTROPHIL 77.5 % (41-80); NRBC 0; PLT 131 K/uL (150-400); RBC 4.88 M/uL (4.20-5.40); RDW 16.9 % (11.5-14.0); WBC 5.6 K/uL (4.0-10.5)
== END 2021-10-09 12:55 | disposition home or self-care (01) ==
LOC: FER 09:11
PROVIDERS: Emergency Medicine
DX: M79.661 Pain in right lower leg (principal); I10 Essential (primary) hypertension; Z79.899 Other long term (current) drug therapy
CPT/HCPCS: 36415; 73590; 85025